=== PATIENT | female | born 1975 | race Hispanic/Latino ===

== ENCOUNTER 2016-05-20 06:32 | Inpatient (IN) | payer OTHER ==
[2016-05-20 06:40] VITALS: BMI 26.9
[2016-05-20 07:06] VITALS: BP 107/67; PULSE 70; RESP 18; TEMP 98.5; O2SAT 100
[2016-05-20] MEDS: Lactated Ringer's 1,000 ML IV SCH ×2 (07:10→08:10)
[2016-05-20] MEDS ORDERED: ceFAZolin 2 GM in Sodium Chloride 0.9% 100 ML IVPB ONE (07:15)
[2016-05-20] MEDS ORDERED: ePHEDrine 50 mg/ml Inj ONE (07:42)
[2016-05-20] MEDS ORDERED: Morphine 1 mg/ml preservative-free Inj(Duramorph) ONE (07:43)
[2016-05-20] MEDS ORDERED: Phenylephrine 10 mg/ml Inj ONE (07:43)
[2016-05-20 07:50] LABS: BASO % 0.4 % (0.0-2.0); EOS # 0.1 K/uL (0.0-0.7); EOS % 1.6 % (0.0-4.0); HEMATOCRIT 34.9 % (34.0-47.0); LYMPH % 25.3 % (20.0-40.0); MEAN CELL VOLUME 89.6 fl (81.0-99.0); MEAN CORPUSCULAR HEMOGLOBIN 30.2 pg (27.0-31.0); MEAN CORPUSCULAR HGB CONC 33.7 g/dL (33.0-37.0); MEAN PLATELET VOLUME 9.3 fl (7.2-11.7); MONO # 0.7 K/uL (0.0-0.8); MONO % 9.1 % (0.0-10.0); NEUT # 5.1 K/uL (1.8-7.0); NEUT % 63.6 % (50.0-75.0); RED CELL DISTRIBUTION WIDTH 12.8 % (11.5-14.5); WHITE BLOOD COUNT 8.1 K/uL (4.8-10.8)
[2016-05-20] MEDS ORDERED: Oxytocin 30 units/LR 500ML 500 ML IV ONE ×2 (08:10→09:51)
[2016-05-20] MEDS ORDERED: DiphenhydrAMINE 50 mg/ml Inj IVP PRN (10:50)
--- NOTE | 2016-05-20 11:39 | OP ---
PROCEDURE DATE: 05/20/2016 PREOPERATIVE DIAGNOSES: Intrauterine at 39 weeks; history of fibroid uterus, 10-12 cm in s ize, and multiple. POSTOPERATIVE DIAGNOSES: Intrauterine at 39 weeks; history of fibroid uterus, 10-12 cm in size, and multiple. OPERATION PERFORMED: Primary section, maternal request. SURGEON: Timotyh Stone MD FILTER PLANT SUPERVISOR: Dr. Megan Milligan.= ANESTHESIA: Spinal, administered by Dr. Gomez. ESTIMATED BLOOD LOSS: 800 mL. URINE OUTPUT: Miller catheter put out approximately 100 mL of clear urine. FLUIDS: The patient received approximately 1300 mL of D5 LR intraoperatively. OPERATIVE FINDINGS: Baby boy, vertex presentation, Apgars 9 and 9, and weighed 7 pounds 11 ounces. Normal tubes and ovaries were identified. There was a large posterior fibroid and there were 2 in th e right lateral lower uterine segment. The help desk assistant was Dr. Megan Milligan. She was helpful in creating exposure, obtaining hemostasis, an d delivery of the infant and closure of the patient. The procedure would not have been possible with out her assistance. INDICATIONS: During the patient's care, the patient was noted to have very large uterine fi broids. MFM consultation was obtained and the recommendation for operative delivery was made. We co unseled the patient regarding the risks of dysfunctional labor with uterine fibroids versus a primary section versus a trial of labor. After a thorough discussion, the patient opted for primar y section. PROCEDURE: After informed consent was obtained, the patient was taken to the operating room where sh raphael was given spinal anesthesia. She was then prepped and draped in the usual sterile fashion. A Pfan nenstiel skin incision was then made with a scalpel and carried down to the underlying layer of fasci a. The fascia was nicked in the midline. The fascial incision was then extended laterally with the curved Ross scissors. Superior aspect of the fascial incision was then grasped with Naldo clamps, e levated up, and the rectus muscles were dissected off using both sharp and blunt dissection. Attenti on was then turned to the inferior aspect of the fascial incision which was grasped with Naldo clamp s, elevated up, and the rectus muscles were dissected off using both sharp and blunt dissection. The rectus muscles were then in the midline. The peritoneum identified and entered sharply wi th the Metzenbaum scissors. The peritoneal incision was then extended superiorly and inferiorly with good visualization of the bladder. The bladder blade was inserted. The vesicouterine peritoneum wa s identified and entered sharply with the Metzenbaum scissors. The incision was then extended latera lly. The bladder flap was created digitally. The bladder blade was then readjusted and a low transv erse incision was made with a scalpel. The incision was then extended laterally, care taking to avoi d uterine fibroids. The infant's head was then delivered atraumatically. The nose and mouth were mullins ctioned with DeLee suction trap. The cord was clamped and cut. The infant was handed off to waiting pediatricians. Cord blood was obtained and sent to the lab. The placenta was then delivered manual ly. The uterus was cleared of all clots and debris. The uterine incision was then repaired with 0 V icryl in a running lock fashion; second layer of the same suture was used to obtain excellent hemosta sis. The abdomen was then copiously irrigated. The irrigant was removed with a suction device. Hem ostasis was noted. The gutters were packed with moist laparotomy sponges and extracted, and the gutt ers were cleared of all clots and debris. Attention was then turned to the uterine incision which wa s hemostatic. We then proceeded to close the peritoneum with 2-0 Vicryl in a running fashion. The m uscle was reapproximated with 0 Vicryl in an interrupted fashion. The fascia was closed with 0 Vicry l in a running fashion. The skin was closed with 4-0 on a Edward needle. All sponge, lap, needle, an d instrument counts were correct x 2 and the patient was taken to the recovery room in awake and stab le condition. Timothy Stone MD cc: [id number] TT: 05/20/2016 11:39:01 [email or web address]
[2016-05-20] MEDS ORDERED: Oxycodone/Acetaminophen 5/325 mg Tab PO PRN (11:46)
--- NOTE | 2016-05-20 20:15 | OBDS ---
DELIVERY PERSONNEL Delivery Doctor: Lexus Stone MD Explosive Man: Tracy Matos RN/Fifi Ho RN Anesthesiologist: Kash Gomez MD MATERNAL INFORMATION Delivery Anesthesia: Spinal Medications in Delivery: pitocin 30/500 and ancef Estimated Blood Loss (ml): 800 Placenta Cultured: No Maternal Complications: None Provider Comments: see op report LABOR SUMMARY EDC: 05/25/2016 00:00 No. Babies in Womb: 1 Attempted: No Labor Anesthesia: Intrathecal LABOR INFORMATION Reason for Induction: Not Applicable Oxytocin: N/A Group B Beta Strep: Negative Antibiotics # of Doses: 1 Antibiotics Time of Last Dose: 0910 Steroids Given: None Reason Steroids Not Administered: Not Applicable MEMBRANES Membranes Rupture Method: Artificial Rupture of Membranes: 05/20/2016 09:50 Length of Rupture (hrs): 0.02 Amniotic Fluid Color: Clear Amniotic Fluid Amount: Small Amniotic Fluid Odor: None STAGES OF LABOR Stage 3 hrs: 0 Stage 3 min: 1 VAGINAL DELIVERY Episiotomy: None Laceration Extension: N/A Laceration Type: None Laceration Repair: Not Applicable Sponge Count Correct: N/A CSECTION DELIVERY Primary Indication: mulitple Fibroids Secondary Indication: N/A CSection Urgency: Elective CSection Incidence: Primary Labor: N/A Elective: N/A CSection Incision: Lower Uterine Transverse BABY A INFORMATION Delivery Date/Time: 05/20/2016 09:51 Method of Delivery: Born in Route : No : N/A Forceps: N/A Vacuum Extraction: N/A Shoulder Dystocia : No SHOULDER DYSTOCIA BABY A Infant Delivery Date/Time: 05/20/2016 09:51 PRESENTATION/POSITION BABY A Presentation: Cephalic Cephalic Presentation: Vertex Vertex Position: Left Occipital Anterior Breech Presentation: N/A PLACENTA INFORMATION BABY A Placenta Delivery Time : 05/20/2016 09:52 Placenta Method of Delivery: Manual Removal Placenta Status: Delivered SCORES BABY A Heart Rate 1 min: >100 bpm Resp Effort 1 min: Good Cry Reflex Irritability 1 min: Cough or Sneeze or Pulls Away Muscle Tone 1 min: Active Motion Color 1 min: Body [place], Extremities Blue Resuscitation Effort 1 min: N/A SCORE 1 MIN: 9 Heart Rate 5 min: >100 bpm Resp Effort 5 min: Good Cry Reflex Irritability 5 min: Cough or Sneeze or Pulls Away Muscle Tone 5 min: Active Motion Color 5 min: Body [place], Extremities Blue Resuscitation Effort 5 min: N/A SCORE 5 MIN: 9 INFANT INFORMATION BABY A Gestational Age at Delivery: 39.2 Gestational Status: Term Infant Outcome : Liveborn Condition : Stable Sex: Male IDENTIFICATION/MEDS BABY A ID Band Number: [id number] ID Band Location: Left Leg; Left Arm WEIGHT/LENGTH BABY A Infant Birthweight (gms): 3500 Weight (lb): 7 Weight (oz): 11 CORD INFORMATION BABY A No. Cord Vessels: 3 Nuchal Cord : N/A Cord Blood Taken: Yes Suction: Mouth; Nose ASSESSMENT BABY A Complications: None Physical Findings at Delivery: Within Normal Limits Respirations: Appears Normal Case Sealer/ALS Called : No Care By: Dr Cabello/Keren Sethi Transferred To: Remains with Mother
[2016-05-20] MEDS: Oxycodone/Acetaminophen 5/325 mg Tab PO PRN (23:11)
[2016-05-21] MEDS: Oxycodone/Acetaminophen 5/325 mg Tab PO PRN ×4 (05:29→22:04)
[2016-05-21 07:20] LABS: BASO % 0.2 % (0.0-2.0); EOS # 0.1 K/uL (0.0-0.7); EOS % 0.8 % (0.0-4.0); HEMATOCRIT 27.4 % (34.0-47.0); LYMPH # 1.5 K/uL (1.0-4.3); LYMPH % 12.5 % (20.0-40.0); MEAN CELL VOLUME 89.9 fl (81.0-99.0); MEAN CORPUSCULAR HEMOGLOBIN 29.8 pg (27.0-31.0); MEAN CORPUSCULAR HGB CONC 33.1 g/dL (33.0-37.0); MEAN PLATELET VOLUME 8.8 fl (7.2-11.7); MONO # 0.7 K/uL (0.0-0.8); MONO % 5.9 % (0.0-10.0); NEUT % 80.6 % (50.0-75.0); WHITE BLOOD COUNT 12.4 K/uL (4.8-10.8)
--- NOTE | 2016-05-21 09:47 | OBPPN ---
Datetime: 05/21/2016 09:42 PP Pain Prov: Within normal limits PP Nausea Prov: Denies PP Flatus Prov: Yes PP BM Prov: No PP Abdomen/Uterus Prov: Normal PP Lochia Prov: Normal PP Extremities Prov: Normal PP C/S Incision Prov: Normal PP Progress Prov: Normal PP Comments Phys Exam Prov: Incision w/ bandage in place PP Impression Prov: Normal progression PP Plan Prov: Continue present management PP Progress Note Prov: POD1 s/p primary c/s, doing well, breast feeding Continue current management Vital Signs Provider PP: Reviewed; Within Normal Limits
[2016-05-22] MEDS: Oxycodone/Acetaminophen 5/325 mg Tab PO PRN ×3 (03:10→20:16)
--- NOTE | 2016-05-22 12:59 | OBPPN ---
Datetime: 05/22/2016 12:55 PP Pain Prov: Within normal limits PP Nausea Prov: Denies PP Flatus Prov: Yes PP Breasts Prov: Normal PP Heart Prov: Normal PP Lungs Prov: Normal PP Abdomen/Uterus Prov: Normal PP Lochia Prov: Normal PP Vulva/Perineum Prov: Normal PP CVA Tenderness Prov: Normal PP Extremities Prov: Normal PP Comments Phys Exam Prov: FUndus firm under umbilicus Incision clean/dry/intact PP Impression Prov: Normal progression PP Plan Prov: Continue present management PP Progress Note Prov: Patient denies CP, SOB, no N/V, tolerating PO diet, ambulating/voiding well, mild lochia, ambulating/voiding well, abdominal pain tolerable with meds A/P POD 2 1. Reg diet 2. Percocet/Motrin prn pain 3. Encourage ambulation/pain IP PP Procedures: None Vital Signs Provider PP: Reviewed; Within Normal Limits
--- NOTE | 2016-05-22 18:56 | OBADHP ---
Datetime: 05/20/2016 06:45 Admit Comment, IP Provider: 40 yr at 39w2d GA , AMA, GDM class A2, fibroids, LGA fetus and poly hydramnios presents to [facility] for scheduled as recommended by MFM d/t fibroid location . Jessica ent denies LOF, vaginal bleeding or ctx's. Reports having routine care with Dr. Stone. Chad vivar has no concerns or complaints at this time. care/course: AMA, GDM class A2 , fibroids, LGA fetus, polyhydramnios, Rubella Non-Immune, RPR neg, HIV nonreactive, HepBsAg neg, Influenza vaccine given OBHx: none PMHx: none SurgHx: none SocHx: denies smoking, Etoh, drugs Meds: Glyburide 1.25 mg PO QD, PNV, iron Allergies: NKDA PE: VSS Cardiac: S1 S2 normal, no murmurs, rubs or gallops Lungs: CTABL Abd: gravid, nontender Ext: no edema A: IUP at 39w2d for scheduled P: -Admit to labor and delivery -Initiate protocol -IV insertion, CBC, Type and screen, LR's -Anesthesia consult -Ancef 2gms IV -Monitor labor progress -Continuous Monitoring Emy Stone M.D. PGY1 OB Hospitalist alon...I saw and examined this pt. Condition discussed and [facility] Extremities - PN: Normal Abdomen - PN: Normal Back - PN: Normal Lungs - PN: Normal Heart - PN: Normal Neurologic - PN: Normal HEENT - PN: Normal General - PN: Normal FHR - Baseline A Provider: 130 Comments, ACOG Physical Exam: ROS: General: no weakness; no fatigue HEENT: no TURCIOS; no visual dist CV: no palpitations; no no CP GI: noN/V no diarhea No epigastric pain; non radiating : no F/U/D MS: No joint pain Gestation - Est Wks by US: 39.2 IP Hx Assessment: The History has been Reviewed and is Current IP Chief Complaint: Scheduled Section NICHD Variability Prov Fetus A: Moderate 6-25bpm NICHD Accel Fetus A IP Provider: [id number] FHR Category Provider Fetus A: Category I NICHD Decel Fetus A IP Provider: None DTRs - PN: Normal EGA AdmitDate IP: 39.2 IP Adm Impression: Term, intrauterine IP Admit Plan: Admit to unit; Initiate Section protocol
[2016-05-23] MEDS: Oxycodone/Acetaminophen 5/325 mg Tab PO PRN ×2 (01:09→06:10)
[2016-05-23] MEDS ORDERED: Measles, Mumps, and Rubella 1 EA VIAL SC ONE (12:10)
--- NOTE | 2016-05-23 12:43 | OBDCSUM ---
Datetime: 05/23/2016 10:00 Discharged to, Provider: Home Follow up at, Provider: [facility] Disch Instr Activity: Normal activity Disch Instr Diet: Regular Discharge Instructions, Provider: Routine instructions given Discharge Diagnosis, Provider: Term Delivered Discharge Time: 05/23/2016 13:00 Follow up in weeks, Provider: 2 weeks/6weeks Disch Referrals: None Contraception discussed, Prov: Yes Disch Activity Restrictions: No exercising; No lifting; No driving; No sexual activity; Nothing in v agina - [place], tampons, douche Discharge Comment, Provider: f/u in office in 2 wks and 6 wks
--- NOTE | 2016-05-23 12:43 | OBPPN ---
Datetime: 05/23/2016 12:38 PP Pain Prov: Within normal limits PP Nausea Prov: Denies PP Flatus Prov: Yes PP Breasts Prov: Normal PP Heart Prov: Normal PP Lungs Prov: Normal PP Abdomen/Uterus Prov: Normal PP Lochia Prov: Normal PP Vulva/Perineum Prov: Normal PP CVA Tenderness Prov: Normal PP Extremities Prov: Normal PP Comments Phys Exam Prov: Fundus firm under umbilicus Incision clean/dry/intact PP Impression Prov: Normal progression PP Plan Prov: Continue present management PP Progress Note Prov: Patient denies CP, no SOB, no N/V, tolerating PO diet, ambulating/voiding wel l, mild lochia, ambulating/voiding well, mins A/P 1. Patient for discharge 2. Discharge instructions reviewed IP PP Procedures: None Vital Signs Provider PP: Reviewed; Within Normal Limits
== END 2016-05-23 17:31 | disposition home or self-care (01) | DRG 766 ==
LOC: H.L&D 06:32 → H.OB/GYN 14:00
PROVIDERS: ADMIT Obstetrics & Gynecology Gynecology; ATTEND Obstetrics & Gynecology Gynecology
PROC: 10D00Z1 Extraction of Products of Conception, Low, Open Approach (ICD-10-PCS; principal; 2016-05-20)
PROC: 4A1HXCZ Monitoring of Products of Conception, Cardiac Rate, External Approach (ICD-10-PCS; 2016-05-20)
DX: O34.13 Maternal care for benign tumor of corpus uteri, third trimester (principal); O24.429 Gestational diabetes mellitus in childbirth, unspecified control; Z37.0 Single live birth; O09.523 Supervision of elderly multigravida, third trimester; Z3A.39 39 weeks gestation of pregnancy